=== PATIENT | female | born 1975 ===

== ENCOUNTER 2016-12-22 09:28 | Observation (INO) | payer OTHER ==
[2016-12-22] MEDS ORDERED: NS 1,000 ML IV ONE (09:50)
--- NOTE | 2016-12-22 09:57 | EDPHY ---
H & P Time Seen by Provider: 12/22/16 09:38 HPI/ROS: CHIEF COMPLAINT: vaginal bleeding, miscarriage HISTORY OF PRESENT ILLNESS: Patient is a 41-year-old female who presents to the emergency department with vaginal bleeding. She is G4 para 1 0 2 (elective/ natural) 1. Last menstrual period was 09/29/2016. EDC 07/01/2017. Patient is approximately 11 weeks . She went in for routine visit last week and was noted to have an empty sac. She elected to miscarriage naturally. She began bleeding on Tuesday. The bleeding increased significantly on Tuesday and she went to the emergency department. She had ultrasound with evaluation by a [facility] Installer Technician. Se was started on misoprostol at around 7pm on Tuesday. Her bleeding slowed by 3:00 a.m. since that time she has had mild vaginal bleeding consistent with menses. However, this morning she developed a rapid increase in her bleeding. She also has significant suprapubic cramping. She reports mild lightheadedness and dizziness. No chest pain or shortness of breath. No fevers or chills. REVIEW OF SYSTEMS: My complete review of systems is negative except as mentioned in the HPI. Past Medical/Surgical History: Includes allergies, chronic urticaria Past surgical history: Hernia repair Social history: The patient does not smoke. Smoking Status: Never smoked Physical Exam: Vitals noted. In triage the patient blood pressure was 80/66 with a heart rate of 104. When she was brought back to the room her initial blood pressure was 140 systolic. GENERAL: No acute distress, alert. HEENT: Eyes normal to inspection, normal pharynx. NECK: No thyromegaly, no lymphadenopathy, supple. RESPIRATORY: Clear to auscultation bilaterally, no rales, rhonchi or wheezing. CVS: Regular rate and rhythm, no rubs, murmurs, or gallops. ABDOMEN: Soft, nontender, nondistended, no organomegaly. No suprapubic firmness or palpable mass. BACK: Normal to inspection, no CVA tenderness. SKIN: Normal color, no rash, warm, dry. No pallor. EXTREMITIES: No pedal edema, no joint swelling. NEURO/PSYCH: Alert and oriented, normal mood and affect Constitutional: Initial Vital Signs Temperature (C) 36.7 C 12/22/16 09:33 Heart Rate 104 H 12/22/16 09:33 Respiratory Rate 20 12/22/16 09:33 Blood Pressure 80/66 L 12/22/16 09:33 O2 Sat (%) 98 12/22/16 09:33 O2 Delivery Mode Room Air Allergies/Adverse Reactions: lorazepam Allergy (Verified 12/22/16 11:31) Hives Home Medications: Medication Instructions Recorded Cetirizine [ZyrTEC 10 mg (*)] 10 mg PO DAILY 12/22/16 Vits W-Ca,Fe,FA(<1Mg) 1 each PO DAILY 12/22/16 [ Vitamins] Medical Decision Making - Diagnostics Imaging Results: Imaging Impressions Obstetrics Ultrasound 12/22/16 09:51 Impression: 1. Retained products of conception, including blood products and probable piece of placenta. 2. Normal ovaries. Findings discussed with Emergency Department physician, Dr. Megan Bradley on December 22, 2016 at 1110 hours. ED Course/Re-evaluation: In the emergency department I discussed possible etiologies with the patient. I answered all her questions. I discussed the plan. An IV was placed. Laboratory studies were obtained. I discussed the orders with the blood bank. They recommended a type and screen rather than a type and Rh. This was ordered. I ordered an ultrasound. The patient was given normal saline 1 L IV for hydration. I paged obstetric. I spoke with Dr. Conde from obstetrics. She agreed with plan for ultrasound and laboratory studies. I reviewed the patient's laboratory studies. She is mildly anemic with hematocrit 37. Her previous hematocrit in September was 39. Her chemistry panel is unremarkable except for slightly low bicarb of 21. Her beta quant is a 890. Rh positive 1105: I discussed the ultrasound result with Dr. Richie Chase. Please refer the dictated report. The patient has what appears to be vascularized placenta as well as clot. This measures 2.4 cm. I discussed the result with Dr. Conde. She requested that I admit the patient to mom/baby. I discussed the plan with the patient. I answered all her questions. Patient states she does not want to undergo D&C. She states she refuses that treatment. I explained the risks and benefits of undergoing this treatment. I explained the reasons for recommendations. Patient states that "as a woman of color I do not trust this region." She states she wants to return to the [facility] to have the procedure performed. I again explained our concerns with her diagnosis. Patient has capacity to make this decision. She understands the pros and cons. 1215: Dr. Conde came to the ED to speak with the patient. After discussion the patient consents to procedure. She will be taken to preop. Differential Diagnosis: My differential includes but is not limited to miscarriage uterine bleed, mass, malignancy, ectopic , anemia - Data Points Laboratory Results: Laboratory Results 12/22/16 09:45 12/22/16 09:45 12/22/16 12/22/16 12/22/16 09:54 09:50 09:45 WBC RBC Hgb Hct MCV MCH MCHC RDW Plt Count MPV Neut % (Auto) Lymph % (Auto) [place] % (Auto) Eos % (Auto) Baso % (Auto) Nucleat RBC Rel Count Absolute Neuts (auto) Absolute Lymphs (auto) Absolute Monos (auto) Absolute Eos (auto) Absolute Basos (auto) Absolute Nucleated RBC Immature Gran % Immature Gran # Sodium 139 mEq/L mEq/L (134-144) Potassium 3.6 mEq/L mEq/L (3.5-5.2) Chloride 103 mEq/L mEq/L (97-110) Carbon Dioxide 21 mEq/l L mEq/l (22-31) Anion Gap 15 mEq/L mEq/L (8-16) BUN 9 mg/dL mg/dL (7-23) Creatinine 0.7 mg/dL mg/dL (0.6-1.0) Estimated GFR > 60 Glucose 110 mg/dL H mg/dL (70-100) Calcium 9.8 mg/dL mg/dL (8.5-10.4) Beta HCG, Quant 890.90 mIU/mL H mIU/mL (0.00-4.83) Patient ABO/Rh A POSITIVE Cancelled Antibody Screen NEGATIVE 12/22/16 09:45 WBC 7.01 10^3/uL 10^3/uL (3.80-9.50) RBC 4.35 10^6/uL 10^6/uL (4.18-5.33) Hgb 12.5 g/dL L g/dL (12.6-16.3) Hct 37.9 % L % (38.0-47.0) MCV 87.1 fL fL (81.5-99.8) MCH 28.7 pg pg (27.9-34.1) MCHC 33.0 g/dL g/dL (32.4-36.7) RDW 13.2 % % (11.5-15.2) Plt Count 310 10^3/uL 10^3/uL (150-400) MPV 9.3 fL fL (8.7-11.7) Neut % (Auto) 55.9 % % (39.3-74.2) Lymph % (Auto) 35.9 % % (15.0-45.0) [place] % (Auto) 6.1 % % (4.5-13.0) Eos % (Auto) 1.3 % % (0.6-7.6) Baso % (Auto) 0.4 % % (0.3-1.7) Nucleat RBC Rel Count 0.0 % % (0.0-0.2) Absolute Neuts (auto) 3.91 10^3/uL 10^3/uL (1.70-6.50) Absolute Lymphs (auto) 2.52 10^3/uL 10^3/uL (1.00-3.00) Absolute Monos (auto) 0.43 10^3/uL 10^3/uL (0.30-0.80) Absolute Eos (auto) 0.09 10^3/uL 10^3/uL (0.03-0.40) Absolute Basos (auto) 0.03 10^3/uL 10^3/uL (0.02-0.10) Absolute Nucleated RBC 0.00 10^3/uL 10^3/uL (0-0.01) Immature Gran % 0.4 % % (0.0-1.1) Immature Gran # 0.03 10^3/uL 10^3/uL (0.00-0.10) Sodium Potassium Chloride Carbon Dioxide Anion Gap BUN Creatinine Estimated GFR Glucose Calcium Beta HCG, Quant Patient ABO/Rh Antibody Screen Medications Given: Lactated Ringer's (Lr) 1,000 mls @ 125 mls/hr IV CONT REEMA Stop: 06/20/17 13:29 Last Admin: 12/22/16 12:30 Dose: 1,000 mls Discontinued Medications Doxycycline Hyclate (Doxycycline Hyclate) 100 mg PO ONCALL ONE Stop: 12/22/16 13:31 Last Admin: 12/22/16 13:33 Dose: 100 mg Doxycycline Hyclate (Doxycycline Hyclate) 200 mg PO ONCALL ONE Stop: 12/22/16 14:31 Last Admin: 12/22/16 14:45 Dose: 200 mg Sodium Chloride (Ns) 1,000 mls @ 0 mls/hr IV ONCE ONE; Wide Open PRN Reason: Protocol Stop: 12/22/16 09:51 Last Admin: 12/22/16 09:53 Dose: 1,000 mls Ibuprofen (Motrin) 600 mg PO ONCE ONE Stop: 12/22/16 14:36 Last Admin: 12/22/16 14:45 Dose: 600 mg Departure - Departure Disposition: [facility] Clinical Impression: Miscarriage, Retained products of conception Condition: Good
[2016-12-22 09:58] LABS: % IMMATURE GRANULYOCYTES 0.4 % (0.0-1.1); ABSOLUTE IMMATURE GRANULOCYTES 0.03 10^3/uL (0.00-0.10); ADD DIFF? NO; ADD MORPH? NO; ADD SCAN? NO; ATYPICAL LYMPHOCYTE FLAG 20 (0-99); FRAGMENT RBC FLAG 10 (0-99); HEMATOCRIT 37.9 % (38.0-47.0); HEMOGLOBIN 12.5 g/dL (12.6-16.3); LEFT SHIFT FLG 0 (0-99); LIPEMIA HEMOLYSIS FLAG 80 (0-99); MEAN CELL HEMOGLOBIN 28.7 pg (27.9-34.1); MEAN CELL VOLUME 87.1 fL (81.5-99.8); MEAN PLATELET VOLUME 9.3 fL (8.7-11.7); PLATELET CLUMPS FLAG 10 (0-99); PLATELET COUNT 310 10^3/uL (150-400); RED BLOOD CELL COUNT 4.35 10^6/uL (4.18-5.33); RED CELL DISTRIBUTION WIDTH 13.2 % (11.5-15.2)
[2016-12-22 10:09] LABS: ANION GAP 15 mEq/L (8-16); CALCIUM 9.8 mg/dL (8.5-10.4); CARBON DIOXIDE 21 mEq/l (22-31); CHLORIDE 103 mEq/L (97-110); CREATININE 0.7 mg/dL (0.6-1.0); GLOMERULAR FILTRATION RATE > 60; GLUCOSE 110 mg/dL (70-100); POTASSIUM 3.6 mEq/L (3.5-5.2); SODIUM 139 mEq/L (134-144)
[2016-12-22 11:46] VITALS: RESP 16; O2SAT 96
--- NOTE | 2016-12-22 12:21 | GHP ---
[f rep st] HISTORY AND PHYSICAL DATE OF ADMISSION: 12/22/2016 ADMITTING DIAGNOSIS: Incomplete at 11 weeks. HISTORY OF PRESENT ILLNESS: Patient is a 41-year-old, 4, para 1-0-2-1, with a last menstrual period 09/29/2016, with an estimated due date 07/01/2017, who is approximately 11 weeks . She presents to the emergency room with very heavy bleeding. Patient went in for a routine visit last week with her OB and was noted to have an empty sac on ultrasound. She elected to miscarriage naturally. She did begin bleeding a few days later. The bleeding increased significantly over the weekend. She presented to the emergency department. She had an ultrasound and evaluation by [facility]. She was started on misoprostol at 7 p.m. on Tuesday. Her bleeding did slow down by 3 a.m. Since that time, she has had mild vaginal bleeding consistent with light menses. However, this morning, she developed very heavy vaginal bleeding, also notes significant suprapubic cramping as well as mild lightheadedness, and dizziness. Denies any nausea, vomiting, fevers, chills, chest pain, or shortness of breath. PAST OB HISTORY: A full-term uncomplicated vaginal delivery, viable female. One missed AB and 1 therapeutic AB. PAST LEAK DETECTOR HISTORY: Age of menarche 14. Cycles are regular, every 28 days for 5- 7 days. Patient denies a history of abnormal Pap smears or any exposure to sexually transmitted diseases. PAST MEDICAL HISTORY: Includes allergies, chronic urticaria. PAST SURGICAL HISTORY: Remarkable for hernia repair. SOCIAL HISTORY: Patient lives with her daughter. She denies any alcohol, tobacco, or illicit drug use. FAMILY HISTORY: Unremarkable. MEDICATIONS: None ALLERGIES: Lorazepam REVIEW OF SYSTEMS: A 10-point review of systems is negative. Positive pertinents noted in HPI. LABS: H and H are 12.5/37. Beta HCG 890. She is A positive, antibody negative. STUDIES: On transvaginal ultrasound, there is no gestational sac or embryo noted in the uterus. However, there is heterogeneous echogenic material in the endometrial lining measuring up to 2.5 cm that is consistent with retained placenta. PHYSICAL EXAMINATION: VITAL SIGNS: When she got to the emergency room, blood pressure was noted to be 80/66 with a heart rate of 104. When she was brought back to the room, her initial blood pressure was 140 systolic. GENERAL: A well -oriented, well-nourished, well-developed female. Alert and oriented x3. No apparent distress. HEART: Regular rate and rhythm. LUNGS: Clear to auscultation. ABDOMEN: Soft, nontender. No rebound, no guarding noted. PELVIC: On exam, here are no blood clots in the vault. She is actively bleeding. EXTREMITIES: Normal to inspection without calf tenderness or edema. ASSESSMENT: Patient is a 41-year-old, 4, para 1-0-2-1, who presents to the emergency department with an incomplete . PLAN: Admit to labor and delivery. Will proceed with a suction D and C. Surgical consents to be done at the bedside. Patient is Rh positive. No RhoGAM is needed. Will give antibiotics extension service specialist in charge to OR. [facility]. /[id number]/MODL MTDD
[2016-12-22 12:46] VITALS: BP 122/45; PULSE 86; TEMP 99.3
[2016-12-22] MEDS ORDERED: DOXYCYCLINE HYCLATE 100 MG CAP/TAB PO ONE ×2 (13:30→14:30)
[2016-12-22] MEDS ORDERED: LR 1,000 ML IV SCH (13:30)
[2016-12-22] MEDS ORDERED: PROPOFOL 200 MG/20 ML VIAL ONE ×3 (13:45→14:07)
[2016-12-22] MEDS ORDERED: LIDOCAINE 2% 5 ML SDV ONE (13:45)
[2016-12-22] MEDS ORDERED: IBUPROFEN 600 MG TAB PO ONE ×2 (14:35→14:37)
--- NOTE | 2016-12-22 14:48 | POSTOPPROG ---
Post Op Note Date of Operation: 12/22/16 Surgeon: Nyasia Conde [employer] Professional: None Anesthesiologist: Jake Almaraz Anesthesia: LMA Pre-op Diagnosis: Incomplete AB Post-op Diagnosis: Incomplete Ab Indication: 41 y/o @ 11 weeks with heavy VB with Incomplete Ab, failed med tx Procedure: Suction D&C under u/s guidance Findings: Ut sounded to 10 cm; 8 mm curved curette used. Mod amount POCs noted. Rh + Inf/Abcess present in the surg proc area at time of surgery?: No Depth: Superfical (Skin SQ) EBL: 50-100 Total fluids administered: 300 cc LR UO: 100 cc clear urine at end Complications: None
--- NOTE | 2016-12-22 15:37 | GOP ---
[f rep st] OPERATIVE REPORT DATE OF OPERATION: 12/22/2016 SURGEON: Nyasia Conde DO ANESTHESIA: LMA. ANESTHESIOLOGIST: Jake Almaraz MD. PREOPERATIVE DIAGNOSIS: Incomplete . POSTOPERATIVE DIAGNOSIS: Incomplete . PROCEDURE PERFORMED: Suction dilatation and curettage under ultrasound guidance. FINDINGS: Some blood and clots noted in the vault, actively bleeding. Cervix was noted to be dilated to 2-3 cm. Uterus sounded to 10 cm. The uterus was dilated up to a #8-9 Hegar and then a curved 8 mm suction curette was used. Moderate amounts of products of conception noted. Minimal bleeding at the end of the procedure. The patient is Rh positive. No RhoGAM is needed. SPECIMENS: Products of conception. ESTIMATED BLOOD LOSS: 100 cc. INDICATIONS: Patient is a 41-year-old 4, para 1-0-2-1 with the last menstrual period 09/29/2016 with an estimated due date 07/01/2017. She is approximately 11 weeks . She presented to emergency room with very heavy bleeding. The patient went in for routine visit last week with her OB. Was noted to have an empty sac on ultrasound. She elected to miscarry naturally. She began bleeding a few days later. Bleeding increased significantly over the weekend. She presented to the emergency department. She had ultrasound evaluation by [facility] welding process engineer. Started on misoprostol in the evening and her bleeding did slow down by first aid director. Since that time , she has had mild vaginal bleeding, consistent with light menses; however, this morning she developed very heavy bleeding and also notes significant suprapubic cramping as well as mild lightheadedness and dizziness. She denies any fevers, chills, nausea, vomiting, chest pain, or shortness of breath. Condolences were given. Did review ultrasound with patient that was consistent with a thickened, heterogeneous lining, up to 2.5 cm, consistent with retained products. Discussed with patient, with her findings on ultrasound, with her amount of bleeding as well as having low blood pressure and her symptoms, would recommend proceeding to the operating room for a suction D and C. Surgical consents were obtained. Risks, benefits, and alternatives were reviewed with the patient including but not limited to, bleeding, infection, damage to surrounding organs, and risk of perforation. The patient does understand all risks of the surgery and wants to proceed with surgery at this time. DESCRIPTION OF PROCEDURE: Patient was taken to the operating room where anesthesia was obtained without difficulty. The patient was prepped and draped in the usual sterile fashion, placed in dorsal lithotomy position. An open- sided speculum was then placed in the vagina. The anterior lip of the cervix was grasped with an Allis clamp and the uterus was then gently sounded to 10 cm. At this time, the uterus was gently dilated up to a #8-9 Hegar. A curved 8 mm suction curette was then advanced into the uterine cavity without difficulty and used to suction the contents of the uterus. This was done multiple times under ultrasound guidance. We were able to visualize where the products of conception were noted and make sure they were completely removed. Following the removal of the products of conception, a sharp curette was advanced up to the uterine cavity. This was used to scrape the 4 tariq of the uterus until a gritty texture was noted. This procedure again was done under ultrasound guidance. At this time, the suction curette was advanced 1 additional time to suction any remaining products. All instruments were then removed from the vagina. Hemostasis was noted. Sponge and lap counts were correct x2. Patient tolerated procedure well. No complications. The patient was taken out of dorsal lithotomy position, awakened and sent to PACU in stable condition. COMPLICATIONS: None. IV FLUIDS: 300 cc of LR. URINE OUTPUT: 100 cc of clear urine at the end of procedure. /[id number]/MODL MTDD
--- NOTE | 2016-12-22 17:21 | POSTOPPROG ---
Post Op Note Date of Operation: 12/28/16 Surgeon: Nyasia Conde National Sales: None Anesthesiologist: Addjennifer - Dr. Woo was the anesthesiologist for suction D&C Anesthesia: LMA Pre-op Diagnosis: Incomplete Post-op Diagnosis: Incomplete Indication: 41 y/o @ 11 wks with heavy VB with incomplete Ab, failed medical tx Procedure: Suction D&C under u/s guidance Findings: Uterus sounded to 10cm; 8mm curved suction curette. Mod amt POCs. Rh pos. Inf/Abcess present in the surg proc area at time of surgery?: No Depth: Superfical (Skin SQ) EBL: 50-100 Total fluids administered: 300cc LR UO- 100 cc clear urine Complications: None
== END 2016-12-22 16:43 | disposition home or self-care (01) ==
LOC: FLD 12:32
PROVIDERS: ADMIT Obstetrics & Gynecology; ATTEND Obstetrics & Gynecology
PROC: BU1 Imaging, Female Reproductive System, Fluoroscopy (ICD-10-PCS; principal; 2016-12-22)
PROC: 10D17ZZ Extraction of Products of Conception, Retained, Via Natural or Artificial Opening (ICD-10-PCS; principal; 2016-12-22)
DX: O02.89 Other abnormal products of conception (principal)
CPT/HCPCS: J2704

== ENCOUNTER → 2017-02-25 | Outpatient (CLI) | payer OTHER | LOC: FIMAGING 09:34 | PROVIDERS: ATTEND Internal Medicine Endocrinology, Diabetes & Metabolism | DX: E04.2 Nontoxic multinodular goiter (principal) ==